=== PATIENT | female | born 1995 | race Caucasian/White ===

== ENCOUNTER 2019-12-09 11:31 | Outpatient (NON) | payer BC, SELFPAY ==
[2019-12-11 18:20] LABS: SARS-CoV-2 RNA PCR Negative
== END 2019-12-09 11:32 ==
PROVIDERS: PCP Family Medicine; Visit Provider Physician Assistant Medical
DX: Z20.828 Contact with and (suspected) exposure to other viral communicable diseases (principal); R05 Cough; R51.9 Headache, unspecified
CPT/HCPCS: 87635; C9803; U0003

== ENCOUNTER 2020-11-02 16:57 | Outpatient (CLI) | payer OTHER, SELFPAY ==
[2020-11-02 17:25] LABS: Basophils Absolute Auto 0.1 K/mm3 (0.0-0.1); Basophils Percent Auto 0.4 % (0.2-1.2); Eosinophils Absolute Auto 0.2 K/mm3 (0-0.3); Eosinophils Percent Auto 1.3 % (0-4.4); Hematocrit 36.2 % (37.0-47.0); Hemoglobin 12.9 g/dL (12.0-15.0); Immature Granulocyte Absolute 0.06 K/mm3 (0.00-0.031); Immature Granulocyte Percent A 0.5 % (0-0.5); Lymphocytes Absolute Auto 4.22 K/mm3 (0.9-3.2); Lymphocytes Percent Auto 32.9 % (18.3-44.2); Mean Corpuscular HGB Conc 35.6 g/dl (32-36); Mean Corpuscular Hemoglobin 30.4 pg (26-34); Mean Corpuscular Volume 85.2 fl (80-100); Mean Platelet Volume 9.2 fl (7.4-10.4); Monocytes Absolute Auto 0.8 K/mm3 (0.1-0.6); Neutrophils Absolute Auto 7.6 K/mm3 (1.3-6.7); Neutrophils Percent Auto 58.9 % (45.5-73.1); Platelet Count Result 291 k/mm3 (150-375); Red Blood Count 4.25 M/mm3 (4.2-5.4); Red Cell Distribution Width 12.7 % (11.5-14.5); White Blood Count 12.8 K/mm3 (4.5-10.0)
[2020-11-02 17:27] LABS: Add Urine Microscopic? NO; Appearance Urine Clear (Clear); Bilirubin Urine Negative (Negative); Blood Urine Negative (Negative); Color Urine Yellow (Yellow); Glucose Urine UA Negative (Negative); Ketones Urine Negative (Negative); Leukocyte Esterase Ur Negative LEU/UL (NEGATIVE); Nitrate Urine Negative (Negative); Protein Urine Negative (Negative); Specific Grav Ur 1.009 (1.001-1.035); Urobilinogen Urine Negative mg/dL (<2.0)
[2020-11-02 18:18] LABS: Thyroid Stimulating Hormone 0.631 uIU/mL (0.465-4.680); Vitamin D 25 Hydroxy 60.5 ng/mL
[2020-11-02 18:40] LABS: Hepatitis B Surface Antigen Negative (Negative)
[2020-11-02 18:55] LABS: Hepatitis C Virus Antibody Negative (Negative)
[2020-11-03 10:01] LABS: Rapid Plasma Reagin Non-Reactive (NonReactive)
[2020-11-05 10:51] LABS: Varicella IgG Antibody <135.00 Index (>=165.00)
[2020-11-08 12:43] LABS: Hematocrit 38.9 % (35.0-45.0); Hemoglobin 12.9 g/dL (11.7-15.5); MCH 29.7 pg (27.0-33.0); MCV 89.4 fL (80.0-100.0); RDW 13.5 % (11.0-15.0); Red Blood Cell Count 4.35 Mill/uL (3.80-5.10)
[2020-11-12 12:27] LABS: CF Result NEGATIVE (NEGATIVE)
== END 2020-11-02 16:58 | disposition home or self-care (01) ==
LOC: ANHLAB 17:00
PROVIDERS: PCP Family Medicine; Visit Provider Student in an Organized Health Care Education/Training Program
DX: Z32.00 Encounter for pregnancy test, result unknown (principal)
CPT/HCPCS: 36415; 81003; 81220; 82306; 83021; 84443; 85025; 86592; 86787; 86803; 86900; 86901; 87086; 87340

== ENCOUNTER 2020-11-26 15:16 | Outpatient (CLI) | payer OTHER, SELFPAY ==
--- NOTE | 2020-11-26 15:30 | ECG_ITS ---
Measurements Intervals [place] Rate: 59 P: 36 NM: 137 QRS: 59 QRSD: 108 T: 12 QT: 419 QTc: 416 Interpretive Statements SINUS BRADYCARDIA BORDERLINE ECG Electronically Signed On 11-26-2020 15:52:47 CDT by Tien Jamil D.O.
[2020-11-26 16:35] LABS: HIV 1/2 Ab P24 Ag Result Negative (Negative)
[2020-11-26 16:38] LABS: Rubella IgG Antibody 3.6 IU/ML
== END 2020-11-26 15:17 | disposition home or self-care (01) ==
LOC: ANHLAB 15:17
PROVIDERS: PCP Family Medicine; Visit Provider Student in an Organized Health Care Education/Training Program
DX: Z32.00 Encounter for pregnancy test, result unknown (principal); R00.2 Palpitations; Z3A.00 Weeks of gestation of pregnancy not specified; R00.1 Bradycardia, unspecified
CPT/HCPCS: 36415; 86703; 86762; 86850; 93005; G0432

== ENCOUNTER 2021-02-02 07:14 | Outpatient (CLI) | payer BC, SELFPAY ==
[2021-02-02 08:41] LABS: Basophils Absolute Auto 0.1 K/mm3 (0.0-0.1); Basophils Percent Auto 0.5 % (0.2-1.2); Eosinophils Absolute Auto 0.2 K/mm3 (0-0.3); Eosinophils Percent Auto 1.6 % (0-4.4); Hematocrit 34.1 % (37.0-47.0); Hemoglobin 11.4 g/dL (12.0-15.0); Immature Granulocyte Absolute 0.11 K/mm3 (0.00-0.031); Lymphocytes Absolute Auto 2.32 K/mm3 (0.9-3.2); Lymphocytes Percent Auto 21.2 % (18.3-44.2); Mean Corpuscular HGB Conc 33.4 g/dl (32-36); Mean Corpuscular Hemoglobin 30.4 pg (26-34); Mean Corpuscular Volume 90.9 fl (80-100); Monocytes Absolute Auto 0.7 K/mm3 (0.1-0.6); Monocytes Percent Auto 6.4 % (2.6-8.5); Neutrophils Absolute Auto 7.6 K/mm3 (1.3-6.7); Neutrophils Percent Auto 69.3 % (45.5-73.1); Platelet Count Result 282 k/mm3 (150-375); Red Blood Count 3.75 M/mm3 (4.2-5.4); Red Cell Distribution Width 12.8 % (11.5-14.5); White Blood Count 10.9 K/mm3 (4.5-10.0)
[2021-02-02 08:51] LABS: Glucose 1 Hour PP 50gm Dose 70 mg/dL
== END 2021-02-02 07:15 | disposition home or self-care (01) ==
PROVIDERS: PCP Family Medicine; Visit Provider Student in an Organized Health Care Education/Training Program
DX: Z34.02 Encounter for supervision of normal first pregnancy, second trimester (principal); Z3A.00 Weeks of gestation of pregnancy not specified
CPT/HCPCS: 36415; 82947; 85025

== ENCOUNTER 2021-03-26 16:39 | Outpatient (CLI) | payer BC, SELFPAY ==
[2021-03-26 17:26] LABS: Basophils Absolute Auto 0.1 K/mm3 (0.0-0.1); Basophils Percent Auto 0.5 % (0.2-1.2); Eosinophils Absolute Auto 0.2 K/mm3 (0-0.3); Eosinophils Percent Auto 1.6 % (0-4.4); Hematocrit 35.8 % (37.0-47.0); Hemoglobin 12.3 g/dL (12.0-15.0); Immature Granulocyte Absolute 0.17 K/mm3 (0.00-0.031); Immature Granulocyte Percent A 1.3 % (0-0.5); Lymphocytes Absolute Auto 2.93 K/mm3 (0.9-3.2); Lymphocytes Percent Auto 22.5 % (18.3-44.2); Mean Corpuscular HGB Conc 34.4 g/dl (32-36); Mean Corpuscular Hemoglobin 30.2 pg (26-34); Mean Platelet Volume 9.8 fl (7.4-10.4); Neutrophils Absolute Auto 8.6 K/mm3 (1.3-6.7); Neutrophils Percent Auto 66.1 % (45.5-73.1); Platelet Count Result 270 k/mm3 (150-375); Red Blood Count 4.07 M/mm3 (4.2-5.4); Red Cell Distribution Width 12.8 % (11.5-14.5)
[2021-03-26 18:25] LABS: HIV 1/2 Ab P24 Ag Result Negative (Negative)
[2021-03-29 07:15] LABS: Rapid Plasma Reagin Non-Reactive (NonReactive)
== END 2021-03-26 16:40 | disposition home or self-care (01) ==
PROVIDERS: PCP Family Medicine; Visit Provider Student in an Organized Health Care Education/Training Program
DX: Z34.03 Encounter for supervision of normal first pregnancy, third trimester (principal); Z3A.00 Weeks of gestation of pregnancy not specified
CPT/HCPCS: 36415; 85025; 86592; 86703; G0432

== ENCOUNTER 2021-05-11 16:00 | Inpatient (IN) | payer BC, SELFPAY ==
[2021-05-11 16:24] VITALS: BMI 32.1
--- NOTE | 2021-05-11 16:32 | LDADM ---
This patient, Vera Rossi, was admitted to Labor/Delivery/Recovery 106 on 05/11/21 at 16:00. Plans for labor, pain management and were discussed with patient. Patient/family oriented to hospital policies and general routines including ID bracelet, bed and alarms, visiting hours, pain management, procedures, bathroom and other care routines, personal items, smoking policy, room service/diet and guest tray routines, security routines, and visiting hours. Patient/Family are encouraged to report perceived risks to care and to ask questions if they do not understand what they are told or what they should do. See OBIX for further documentation.
--- NOTE | 2021-05-11 16:33 | PM.IMHP ---
H&P: HPI History of Present Illness Date/Time: 05/11/21 16:33 Patient is a 25yo LMP 08/08/20 currently 39w3d gestation with AJAY 05/15/21 who presented to L&D for scheduled elective induction of labor. Patient is dated by LMP which is c/w US on 09/29/20 at 7w gestation. Patient reports feeling well today. Reports occ possible contractions. Denies any vaginal bleeding or leakage of fluid. Reports good movement. Chief Complaint: Intrauterine at 39w3d gestation Elective induction of labor Review of Systems Review of Systems: All systems reviewed & are unremarkable except as noted in HPI and below Constitutional: Constitutional: Reports as per HPI, Reports no additional constitutional complaints, Denies chills, Denies fever(s), Denies headache(s) and Denies night sweats Eyes: Eyes: Reports as per HPI and Reports no additional eye complaints ENT: Reports system reviewed and no additional complaints, except as documented, Reports as per HPI, Reports Normal hearing present and Denies headache(s) Cardiovascular: Cardiovascular: Reports as per HPI, Reports no additional cardiovascular complaints, Denies chest pain and Denies dyspnea Respiratory: Respiratory: Reports as per HPI, Reports no additional respiratory complaints, Denies cough and Denies dyspnea Gastrointestinal: Gastrointestinal: Reports as per HPI, Reports no additional gastrointestinal complaints, Denies abdominal pain, Denies change in bowel habits, Denies change in stool character, Denies nausea and Denies vomiting Genitourinary: Genitourinary: Reports no additional female genitourinary complaints, Reports as per HPI, Denies abnormal vaginal bleeding, Denies genital lesions, Denies hot flashes, Denies dyspareunia, Denies pelvic pain, Denies sexual dysfunction, Denies urinary incontinence, Denies vaginal discharge, Denies vaginal dryness and Denies vaginal odor Musculoskeletal: Musculoskeletal: Reports no additional musculoskeletal complaints and Reports as per HPI Integumentary/Breasts: Skin/Breast: Reports system reviewed and no additional complaints, except as docu, Reports as per HPI, Denies breast pain and Denies nipple discharge Neurologic: Reports system reviewed and no additional complaints, except as documented, Reports as per HPI, Reports Normal hearing present and Denies headache(s) Psychiatric: Psychiatric: Reports no additional psychiatric complaints, Reports as per HPI, Denies anxiety and Denies depression Endocrine: Endocrine: Reports no additional endocrine complaints and Reports as per HPI Hematologic/Lymphatic: Hematologic/Lymphatic: Reports no additional hematologic/lymphatic complaints and Reports as per HPI Allergic/Immunologic: Allergic/Immunologic: Reports no additional allergic/immunologic complaints and Reports as per HPI PMFSH Past Medical History Medical History Depressive disorder Encounter for contraceptive surveillance Encounter for preconception consultation Exposure to STD Generalized anxiety disorder Irritable bowel syndrome with diarrhea Lab test negative for COVID-19 virus 10.30.20 Upper respiratory infection Surgical History Surgical History [place] teeth removed Family History Family History Grandparent Family history of osteoporosis Family history of mental disorder Family history of arthritis Family history of malignant neoplasm Family history of coronary artery disease Family history of pancreatic cancer Leukemia Father Hypertension Mother Family history of elevated blood lipids Social History Social History Smoking status: Never smoker Alcohol intake: former Substance use: never Spiritual care concerns: No Meds Home Medications and Allergies Home Medications Medication Instructio
--- NOTE | 2021-05-11 16:39 | WPDHPUPDATE1 ---
History and Physical Update Update Date/Time: 05/11/21 16:39 History and Physical has been reviewed, including an updated exam of the patient. There are NO changes in the patient's condition. Risks, benefits, and alternatives have been discussed and questions answered. Patient agrees to proceed with procedure.
[2021-05-11 16:53] VITALS: BP 104/73; PULSE 69
[2021-05-11 16:59] LABS: Basophils Absolute Auto 0.1 K/mm3 (0.0-0.1); Basophils Percent Auto 0.4 % (0.2-1.2); Eosinophils Absolute Auto 0.2 K/mm3 (0-0.3); Eosinophils Percent Auto 1.1 % (0-4.4); Hematocrit 39.9 % (37.0-47.0); Hemoglobin 13.2 g/dL (12.0-15.0); Immature Granulocyte Absolute 0.09 K/mm3 (0.00-0.031); Immature Granulocyte Percent A 0.7 % (0-0.5); Lymphocytes Absolute Auto 2.51 K/mm3 (0.9-3.2); Lymphocytes Percent Auto 18.3 % (18.3-44.2); Mean Corpuscular HGB Conc 33.1 g/dl (32-36); Mean Corpuscular Hemoglobin 28.9 pg (26-34); Mean Corpuscular Volume 87.3 fl (80-100); Mean Platelet Volume 10.7 fl (7.4-10.4); Monocytes Absolute Auto 0.8 K/mm3 (0.1-0.6); Neutrophils Absolute Auto 10.1 K/mm3 (1.3-6.7); Neutrophils Percent Auto 73.5 % (45.5-73.1); Platelet Count Result 253 k/mm3 (150-375); Red Blood Count 4.57 M/mm3 (4.2-5.4); White Blood Count 13.7 K/mm3 (4.5-10.0)
[2021-05-11] MEDS: DINOPROSTONE 10 MG VAG INSERT VAGINAL (17:02)
--- NOTE | 2021-05-11 18:25 | WPDANESEPP ---
Anes - Eval Pre Procedure Procedure: labor epidural Date/Time: 05/11/21 18:25 Surgeon: aba Pre Op Diagnosis: IOL Patient Data Age: 25 Gender: F Height: 1.55 m Weight: 77 kg Last Vital Signs Pulse 69 05/11/21 16:53 BP 104/73 05/11/21 16:53 Allergies Allergy/AdvReac Type Severity Reaction Status Date / Time No Known Allergies Allergy Verified 05/05/21 14:07 Home Medications Medication Instructions Recorded Confirmed Type docosahexaenoic acid 200 mg capsule 200 mg PO DAILY 09/22/20 05/11/21 History sertraline 50 mg tablet 50 mg PO DAILY #90 tablet 01/21/21 05/11/21 Rx Laboratory Tests 05/11/21 05/11/21 05/11/21 16:40 16:40 16:40 WBC 13.7 K/mm3 H K/mm3 (4.5-10.0) RBC 4.57 M/mm3 M/mm3 (4.2-5.4) Hgb 13.2 g/dL g/dL (12.0-15.0) Hct 39.9 % % (37.0-47.0) MCV 87.3 fl fl (80-100) MCH 28.9 pg pg (26-34) MCHC 33.1 g/dl g/dl (32-36) RDW 14.0 % % (11.5-14.5) Plt Count 253 k/mm3 k/mm3 (150-375) MPV 10.7 fl H fl (7.4-10.4) Immature Gran % (Auto) 0.7 % H % (0-0.5) Neut % (Auto) 73.5 % H % (45.5-73.1) Lymph % (Auto) 18.3 % % (18.3-44.2) [place] % (Auto) 6.0 % % (2.6-8.5) Eos % (Auto) 1.1 % % (0-4.4) Baso % (Auto) 0.4 % % (0.2-1.2) Lymph # (Auto) 2.51 K/mm3 K/mm3 (0.9-3.2) [place] # (Auto) 0.8 K/mm3 H K/mm3 (0.1-0.6) Eos # (Auto) 0.2 K/mm3 K/mm3 (0-0.3) Baso # (Auto) 0.1 K/mm3 K/mm3 (0.0-0.1) Abs Immat Gran (auto) 0.09 K/mm3 H K/mm3 (0.00-0.031) Absolute Neuts (auto) 10.1 K/mm3 H K/mm3 (1.3-6.7) Absolute Nucleated RBC 0.0 K/mm3 K/mm3 (0.0-0.012) Nucleated RBC % 0.0 % % (0.0-0.2) RPR Pending Blood Type Pending Antibody Screen Pending Patient hx anesthesia problems: none Family hx anesthesia problems: none Results Review: All pre-operative results and documents have been reviewed as part of the pre-operative evaluation. [facility] Past Medical History Medical History Depressive disorder Encounter for contraceptive surveillance Encounter for preconception consultation Exposure to STD Generalized anxiety disorder Irritable bowel syndrome with diarrhea Lab test negative for COVID-19 virus 10.30.20 Upper respiratory infection Surgical History Surgical History [place] teeth removed Family History Family History Grandparent Family history of osteoporosis Family history of mental disorder Family history of arthritis Family history of malignant neoplasm Family history of coronary artery disease Family history of pancreatic cancer Leukemia Father Hypertension Mother Family history of elevated blood lipids Social History Social History Smoking status: Never smoker Alcohol intake: former Substance use: never Spiritual care concerns: No Exam Day of Procedure 05/11/21 18:25
[2021-05-11 19:08] VITALS: BP 124/92; PULSE 88
[2021-05-11 20:01] VITALS: BP 117/83; PULSE 97
[2021-05-11 20:31] VITALS: BP 121/74; PULSE 74
[2021-05-11 23:27] VITALS: BP 111/74; PULSE 91
[2021-05-12] VITALS (79 sets, daily range): BP systolic 89–182; BP diastolic 29–156; PULSE 60–171; TEMP 36.6–38.8; O2SAT 90–100
--- NOTE | 2021-05-12 07:55 | P.PNOB_ITS ---
Pain Control Date/time seen: 05/12/21 07:55 Per RN, there was an approx. 5 min. decel at approx. 5:00 a.m. Tracing recovered. Patient doing well this AM. Reports feeling contractions, however, able to talk through them. EFM category 1. [place] shows contractions q1-2 mins. SVE 2/50/-2. AROM performed, clear fluid noted. Will observe and augment with pitocin as necessary. Pain management PRN. Continuous EFM and toco. May have epidural, if desired. Plan discussed with patient.
[2021-05-12] MEDS: OXYTOCIN 30 UNITS/NS 500 ML 30 UNITS/500 ML BAG 6 UNITS IV CONT (08:24)
[2021-05-12] MEDS: LACTATED RINGERS 1,000 ML 125 ML IV CONT (08:24)
[2021-05-12 12:23] LABS: Rapid Plasma Reagin Non-Reactive (NonReactive)
[2021-05-12] MEDS: ONDANSETRON INJ 4 MG/2 ML VIAL IV PUSH (16:11)
--- NOTE | 2021-05-12 16:47 | PM.OBPNLAB ---
Pain Control Date/time seen: 05/12/21 16:47 Patient doing well. Comfortable s/p epidural. /-2. Minimal caput noted. EFM 135/mod/+/occ variable. [place] shows ctx q 2-4 mins. Continuous EFM and toco. Continue pitocin.
[2021-05-13] VITALS (41 sets, daily range): BP systolic 100–126; BP diastolic 54–88; PULSE 71–158; RESP 16–20; TEMP 36.1–38.6; O2SAT 96–100
--- NOTE | 2021-05-13 00:10 | P.PNAN_ITS ---
Anes - Eval Pre Procedure Procedure: Operation Date: 05/13/21 23:55 Proposed Procedures p Section - Jenna James MD Date/Time: 05/13/21 00:10 Pre Op Diagnosis: IOL Patient Data Age: 25 Gender: F Height: 1.55 m Weight: 77 kg Last Vital Signs Temp 38.8 C H 05/12/21 21:41 Pulse 74 05/13/21 00:01 BP 107/54 L 05/13/21 00:01 Pulse Ox 100 05/12/21 10:31 Allergies Allergy/AdvReac Type Severity Reaction Status Date / Time No Known Allergies Allergy Verified 05/05/21 14:07 Home Medications Medication Instructions Recorded Confirmed Type docosahexaenoic acid 200 mg capsule 200 mg PO DAILY 09/22/20 05/11/21 History sertraline 50 mg tablet 50 mg PO DAILY #90 tablet 01/21/21 05/11/21 Rx Laboratory Tests 05/11/21 16:40 RPR Non-reactive (NonReactive) Patient hx anesthesia problems: none Family hx anesthesia problems: none Results Review: All pre-operative results and documents have been reviewed as part of the pre-operative evaluation. [facility] Past Medical History Medical History Depressive disorder Encounter for contraceptive surveillance Encounter for preconception consultation Exposure to STD Generalized anxiety disorder Irritable bowel syndrome with diarrhea Lab test negative for COVID-19 virus 10.30.20 Upper respiratory infection Surgical History Surgical History [place] teeth removed Family History Family History Grandparent Family history of osteoporosis Family history of mental disorder Family history of arthritis Family history of malignant neoplasm Family history of coronary artery disease Family history of pancreatic cancer Leukemia Father Hypertension Mother Family history of elevated blood lipids Social History Social History Smoking status: Never smoker Alcohol intake: former Substance use: never Spiritual care concerns: No Exam Day of Procedure 05/13/21 00:10
--- NOTE | 2021-05-13 00:13 | PM.OBPNLAB ---
Pain Control Date/time seen: 05/13/21 00:13 Patient seen at bedside. Patient progressed to fully dilated at 8:30 p.m. She began pushing shortly thereafter. Pushing continued, however, was temporarily suspended for 20-30 mins. to allow tracing to recover following decelerations. Little descent noted and amount of caput increased. head did not descend beyond -1 station despite 2.5 hours of active pushing. Discussion had with patient regarding situation and low likelihood of successful vaginal delivery. Recommendation made to proceed with section for arrest of descent. Risks and benefits of section discussed with patient. Patient implied an understanding and agrees with plan. All questions and concerns addressed. Anesthesia and OR team aware.
--- NOTE | 2021-05-13 01:44 | W.PM.PROC2 ---
Procedure Note - Detailed Date of Procedure 05/13/21 Pre-op Diagnosis Intrauterine at 39w5d gestation Arrest of descent Post-op Diagnosis Same Procedure Performed Primary low transverse section via Pfannenstiel Surgeon Jenna James MD Special Education Coordinator Edwin Ying Anesthesia Epidural Findings Live male infant in cephalic presentation, apgars 2,5, and 7, weighing 7 lbs. 9 oz., clear amniotic fluid, normal appearing uterus, ovaries, and fallopian tubes bilaterally Description of Procedure The patient was taken to the operating room, where she was transferred to the operating room table. The patient was placed in dorsal supine position with a leftward tilt. She was prepped and draped in the usual sterile fashion. Epidural anesthesia that had previously been placed was tested and found to be adequate. A Pfannenstiel skin incision was made with a scalpel and carried through to underlying layer of fascia with the Bovie. The fascia was incised in the midline and the incision was extended laterally with the use of forceps and Grimm scissors. The inferior aspect of the fascial incision was grasped with Jillian clamps, elevated, and the underlying rectus muscle were dissected off with Grimm scissors. Attention was then turned to the superior aspect of the fascial incision, which in a similar manner, was grasped with Jillian clamps, elevated, and the underlying rectus muscles were also dissected off with Grimm scissors. The rectus muscles were in the midline and the peritoneal cavity was entered bluntly. This incision was extended superiorly and inferiorly with good visualization of the bladder and care was taken to avoid blood vessels. A bladder blade was inserted. The vesicouterine peritoneum was identified and incised sharply with Metzenbaum scissors. This incision was extended laterally with Metzenbaum scissors and a bladder flap was created digitally. The bladder blade was replaced. A low-transverse uterine incision was made with a scalpel. This incision was extended laterally with bandage scissors. Amniotomy was performed. Clear amniotic fluid was noted. The infant's head was noted to be in asynclitic, almost complete transverse presentation with occiput towards maternal right side. Head was grasped and gently guided to the level of the uterine incision. The 's head was delivered easily and atraumatically without difficulty followed by the neck, shoulders, and rest of body with gentle fundal pressure. The infant's nose and mouth were suctioned with bulb suction. The was a bit floppy. The cord was clamped and cut and the infant was handed off to awaiting nursing staff. A segment of cord was collected for cord gases. Cord blood was also collected. The placenta was then delivered manually with gentle uterine massage. Uterus was exteriorized and cleared of all clots and debris. The uterine incision was reapproximated with 0 Vicryl in a running, locked fashion. A second imbricating layer using 0 Vicryl was performed. Excellent hemostasis was noted. On inspection, the uterus, ovaries, and fallopian tubes appeared to be normal bilaterally. The uterus was replaced into the abdominal cavity. The gutters were cleared of all clots and debris. The uterine incision was inspected again and noted to be hemostatic. Hemaderm was applied across the uterine incision. Interceed was also applied across the uterine incision and anterior surface of the uterus. The peritoneum was reapproximated with 2-0 Monocryl. The fascia was then closed with 0 Vicryl in a running fashion. The subcutaneous layer was irrigated with water. Pinpoint areas of bleeding were made hemostatic with Bovie. The subcutaneous layer was reapproximated with 2-0 plain and the skin was then closed with 4-0 Monocryl in a subcuticular fashion. The skin was cleansed and dried. Dermaflex skin adhesive was applied across the incision. A pressure dressing was also applied. The remainder the patient was cl
[2021-05-13] MEDS: MORPHINE SULFATE INJ (*CRX) 10 MG/ML AMP 3 MG IV PUSH ×2 (02:00→02:58)
--- NOTE | 2021-05-13 02:04 | PM.OBPRVD ---
OB - Delivery Note Procedure Delivery date: 05/13/21 Procedure: Procedures Operation Date: 05/13/21 23:55 <No data on this case meets the specified criteria> Events: Elective Induction of Labor Intrapartal Events: Arrest of Descent Induction method: Per Cervidil Protocol Delivery augmentation: Rupture of Membranes and Pitocin Delivery monitor: External FHT and External Uterine Route of delivery: Prior to decision for section, [facility] labor guidelines were considered and discussed with the patient and staff. Decision made to proceed with the section.: Yes Specimen: Yes (placenta and cord, cord blood, and cord gases) Quantitative Blood Loss (ml): 490 Anesthesia type: Epidural Disposition: PACU Complications: No immediate complications [place] Baby Date of : 05/13/21 Time of : 00:43 Weeks of gestation at delivery: 39 (39.5) Infant gender: Male Weight (pounds): 7 Weight (ounces): 9 presentation: transverse position: Right Occiput Transverse Placenta delivery description: Manual Removal Cord Vessel Description: 3 Vessels and Clamped/Cut score one minute: 2 score five minutes: 5 score ten minutes: 7 AMG Delivery Billing Delivery Delivery: Delivery Charge
[2021-05-13] MEDS: ceFAZolin 2 GM/D5W 50 ML 2 GM/50 ML BAG IVPB (03:57)
--- NOTE | 2021-05-13 04:09 | OBPPTRN ---
Patient transferred to post room #282 via stretcher. Support person present. Oriented to unit, room, information board, rooming in, admission packet and security measures. Patient verbalizes understanding.
[2021-05-13] MEDS: DEXTROSE 5%/0.45% SOD CHL 1,000 ML 125 ML IV CONT (04:32)
[2021-05-13] MEDS: KETOROLAC 30 MG/ML VIAL (*BKC) IV PUSH (04:33)
[2021-05-13] MEDS: DOCUSATE SODIUM 100 MG CAPSULE PO ×2 (08:55→17:50)
[2021-05-13] MEDS: MULTIVIT/MIN/PREN/FOL AC/IRON TABLET 1 TAB PO (08:56)
[2021-05-13] MEDS: HYDROcodone/acetaminophen (*CRX) 5-325 MG TABLET 1 TAB PO ×4 (08:56→20:13)
[2021-05-13] MEDS: WITCH HAZEL 40 PADS 1 PAD (10:30)
[2021-05-13] MEDS: DIBUCAINE 1% OINTMENT 30 GM TUBE 1 APPLIC (10:30)
[2021-05-13] MEDS: IBUPROFEN 600 MG TABLET PO ×2 (12:53→20:13)
--- NOTE | 2021-05-13 15:45 | PC.NURSE ---
1300 - Introductions were made, then consulted with patient to assess needs related to . Mother led the conversation with her experience feeding her infant so far. Mother works well with her with encouragement and education. Encouraged understanding of the benefits of skin to skin (unwrapping infant and placing vertically on her chest), responsive feeding and how to watch for early feeding signs, frequency of feeding on demand about every 8-12 times in 24 hours (every 2-3 hours), milk production, duration of feeding, signs of adequate intake/output and how to record on the feeding sheet. Mother demonstrates understanding and holds infant skin to skin. Reviewed positioning and ear, shoulder, hip alignment, supporting the breast, asymmetrical latch (off-center), and leading with the chin with a big open side gape. Infant was able to maintain latch without discomfort to mother earlier without deputy grand jury. Nipple care reviewed with optimal latch and good positioning. Reviewed good handwashing when or touching the breast/nipples to prevent infection. Resources used to facilitate learning were used with the visual handouts/ tool/mom and baby guide. Mother voiced understanding of responsive feedings, stimulating with skin to skin, hand expressed colostrum, touch, talking to to encourage if it has been 2 -3 hours since the start of the last , to call if does not latch or there is discomfort with . Reported to the primary RN.
[2021-05-13] MEDS: HYDROcodone/acetaminophen (*CRX) 10-325 MG TABLET 1 TAB PO (23:08)
[2021-05-14] MEDS: HYDROcodone/acetaminophen (*CRX) 10-325 MG TABLET 1 TAB PO ×2 (02:00→05:50)
[2021-05-14] MEDS: SIMETHICONE 80 MG TAB.CHEW PO ×7 (02:00→23:42)
[2021-05-14] MEDS: IBUPROFEN 600 MG TABLET PO ×4 (02:00→20:50)
[2021-05-14 02:15] LABS: Basophils Absolute Auto 0.1 K/mm3 (0.0-0.1); Basophils Percent Auto 0.4 % (0.2-1.2); Eosinophils Absolute Auto 0.2 K/mm3 (0-0.3); Eosinophils Percent Auto 0.8 % (0-4.4); Hematocrit 30.2 % (37.0-47.0); Hemoglobin 9.9 g/dL (12.0-15.0); Immature Granulocyte Absolute 0.12 K/mm3 (0.00-0.031); Immature Granulocyte Percent A 0.6 % (0-0.5); Lymphocytes Absolute Auto 1.97 K/mm3 (0.9-3.2); Lymphocytes Percent Auto 10.4 % (18.3-44.2); Mean Corpuscular HGB Conc 32.8 g/dl (32-36); Mean Corpuscular Hemoglobin 29.6 pg (26-34); Mean Corpuscular Volume 90.1 fl (80-100); Mean Platelet Volume 10.1 fl (7.4-10.4); Monocytes Percent Auto 5.5 % (2.6-8.5); Neutrophils Absolute Auto 15.5 K/mm3 (1.3-6.7); Neutrophils Percent Auto 82.3 % (45.5-73.1); Platelet Count Result 185 k/mm3 (150-375); Red Blood Count 3.35 M/mm3 (4.2-5.4); Red Cell Distribution Width 14.6 % (11.5-14.5); White Blood Count 18.9 K/mm3 (4.5-10.0)
[2021-05-14 08:00] VITALS: BP 118/76; PULSE 86; RESP 19; TEMP 36.2; O2SAT 99
[2021-05-14] MEDS: HYDROcodone/acetaminophen (*CRX) 5-325 MG TABLET 1 TAB PO ×5 (08:51→23:42)
[2021-05-14] MEDS: MULTIVIT/MIN/PREN/FOL AC/IRON TABLET 1 TAB PO (08:52)
[2021-05-14] MEDS: DOCUSATE SODIUM 100 MG CAPSULE PO ×2 (08:52→17:41)
[2021-05-14] MEDS: POLYSACCHARIDE IRON COMPLEX 150 MG CAPSULE PO ×2 (08:52→17:41)
--- NOTE | 2021-05-14 11:19 | PM.OBPNVD ---
OB - PN: Subj Subjective Date/time seen: 05/14/21 11:19 Patient doing well this AM. Pain well controlled with medication. Denies any headache, chest pain, SOB, N/V. Reports occ episodes of lightheadedness. Tolerating PO diet. Ambulating well. Voiding without difficulty. No flatus. OB - PN: Obj Data Labs CBC & Chem 7: 05/14/21 02:06 Labs: Laboratory Results - last 24 hr 05/14/21 02:06 WBC 18.9 H RBC 3.35 L Hgb 9.9 L D Hct 30.2 L MCV 90.1 MCH 29.6 MCHC 32.8 RDW 14.6 H Plt Count 185 MPV 10.1 Immature Gran % (Auto) 0.6 H Neut % (Auto) 82.3 H Lymph % (Auto) 10.4 L [place] % (Auto) 5.5 Eos % (Auto) 0.8 Baso % (Auto) 0.4 Lymph # (Auto) 1.97 [place] # (Auto) 1.0 H Eos # (Auto) 0.2 Baso # (Auto) 0.1 Abs Immat Gran (auto) 0.12 H Absolute Neuts (auto) 15.5 H Absolute Nucleated RBC 0.0 Nucleated RBC % 0.0 OB - PN A/P Assessment and Plan (1) delivery delivered: Code(s): O82 - Encounter for delivery without indication Status: Acute Assessment and Plan: POD#1 doing well continue routine postoperative care encourage ambulation and use of IS Time Spent With Patient Time: Total time spent is greater than 50% in coordination of care (as documented) at patient's floor/unit and/or counseling patient: Exam Const: General: cooperative, healthy appearing, comfortable and no acute distress GI: GI Palp: Yes Soft to palpation and Yes Tenderness to palpation present (GI) (appropriately tender) Other: softly distended; fundus firm below umbilicus; inc c/d/i Extrem: Right lower extremity: no edema Left lower extremity: no edema Other: no calf tenderness
--- NOTE | 2021-05-14 15:00 | WPDANLDPN2 ---
Anes-Prog Note L&D Date/Time: 05/14/21 15:00 Comfortable throughout: labor and section Neuraxial method: epidural Epidural/Spinal procedure site: clean & non-tender Neuro status: Neuro function grossly intact. Cardiovascular status: normal Respiratory status: normal Airway patency: baseline Mental status: baseline Post-Op hydration status: normal Vital Signs: Last Vital Signs Temp 97.2 F L 05/14/21 08:00 Pulse 86 05/14/21 08:00 Resp 19 05/14/21 08:00 BP 118/76 05/14/21 08:00 Pulse Ox 99 05/14/21 08:00 Pain score (VAS): 0 I/O: Intake & Output 05/13/21 05/14/21 05/14/21 23:59 07:59 15:59 Intake Total 1000 Balance 1000 Post-procedural complaints: pruritis mild, no treatment Patient feedback: Patient satisfied with anesthetic care.
--- NOTE | 2021-05-14 15:01 | WPDANLDNPN2 ---
Anes-Prog Note L&D-Neuraxial Date/Time: 05/14/21 15:01 Neuraxial medications: epidural PF morphine Opiod-related complaints: pruritis mild, no treatment Patient feedback: Patient satisfied with post-operative pain management.
--- NOTE | 2021-05-14 15:08 | PC.NURSE ---
[id number] Introductions were made, then consulted with patient to assess needs related to . Mother led the conversation with her experience feeding her so far. Encouraged understanding of the benefits of skin to skin (unwrapping infant and placing vertically on her chest), responsive feeding and how to watch for early feeding signs, frequency of feeding on demand about every 8-12 times in 24 hours (every 2-3 hours), milk production, duration of feeding, signs of adequate intake/output and how to record on the feeding sheet. Reviewed positioning and ear, shoulder, hip alignment, supporting the breast, asymmetrical latch (off-center), and leading with the chin with a big open side gape. Mother states that was able to maintain latch without discomfort with the last feeding. Mother has plans to breastfeed her infant at 1300. Reviewed feeding cues and on demand along with feeding within 3 hours of the start of the last feeding. Nipple care reviewed with optimal latch and good positioning. Reviewed good handwashing when or touching the breast/nipples to prevent infection. Resources used to facilitate learning were used with the visual handouts/mom and baby guide. Encouraged mother to call out for a latch/position assessment with the next breastfeed. Mother voiced understanding of responsive feedings, stimulating with skin to skin, hand expressed colostrum, touch, talking to infant to encourage if it has been 2 -3 hours since the start of the last , to call if infant does not latch or there is discomfort with . Reported to the primary RN.
--- NOTE | 2021-05-14 16:19 | PC.NURSE ---
[id number] Consulted with patient to assess needs related to . Mother led conversation with her experience with feeding baby so far. Mother works well with her with encouragement. Mother has some bruising to the nipples from previous poor latching but is aware of the difference between an optimal latch and ineffective latch. Reviewed working with infant, breast, nipples and how to protect the nipples with an optimal deep latch, good positioning, and good hand washing. Encouraged understanding the benefits of skin to skin, responding to feeding cues, frequencies of feeding 8-12 times in 24 hours (approximately 2-3 hours), duration of feedings, milk production, intake/output feeding sheet and signs of adequate intake encouraging swallowing at the breast. Reviewed positioning and alignment, supporting breast, off-centered (asymmetrical latch) and leading with the chin with big open wide gape. latched optimally to the left and right breast in cross cradle position. Education given to mother of how to visualize suck/swallow ratios and drinking at the breast. Infant was able to maintain latch without discomfort to mother. Nipple care reviewed with optimal latch and good positioning, comfort, healing with warm, wet washcloth to rinse breast, then leave open to air-dry, colostrum may be left on nipples to dry but have clean hands when touching the nipple/breast as needed. Resources used to facilitate learning were used from the visual handout/mom and baby guide. Mother voiced understanding of the education shared, calling for assistance if the infant does not latch or if there is discomfort with . Reported to the primary RN.
[2021-05-14 19:12] VITALS: BP 112/77; PULSE 90; RESP 16; TEMP 36.9
[2021-05-15] MEDS: IBUPROFEN 600 MG TABLET PO ×3 (02:43→14:12)
[2021-05-15] MEDS: HYDROcodone/acetaminophen (*CRX) 5-325 MG TABLET 1 TAB PO ×4 (02:43→14:11)
[2021-05-15] MEDS: SIMETHICONE 80 MG TAB.CHEW PO ×3 (02:43→09:17)
[2021-05-15 05:21] LABS: Mean Corpuscular HGB Conc 32.3 g/dl (32-36); Mean Corpuscular Hemoglobin 29.3 pg (26-34); Mean Corpuscular Volume 90.9 fl (80-100); Mean Platelet Volume 10.2 fl (7.4-10.4); Platelet Count Result 263 k/mm3 (150-375); Red Blood Count 3.41 M/mm3 (4.2-5.4); Red Cell Distribution Width 14.5 % (11.5-14.5); White Blood Count 13.8 K/mm3 (4.5-10.0)
[2021-05-15 08:00] VITALS: BP 129/81; PULSE 96; RESP 18; TEMP 36.2
--- NOTE | 2021-05-15 09:00 | PC.NURSE ---
Patient viewed the discharge video Mother & Baby Care, The First Two Weeks . Patient was given the opportunity and encouraged to ask questions. Patient verbalized understanding of information shared and has been given the mother/baby guide for home reference.
[2021-05-15] MEDS: DOCUSATE SODIUM 100 MG CAPSULE PO (09:17)
[2021-05-15] MEDS: MULTIVIT/MIN/PREN/FOL AC/IRON TABLET 1 TAB PO (09:17)
[2021-05-15] MEDS: POLYSACCHARIDE IRON COMPLEX 150 MG CAPSULE PO (09:18)
--- NOTE | 2021-05-15 09:20 | PM.OBPNVD ---
OB - PN: Subj Subjective Date/time seen: 05/15/21 09:20 Patient doing well. Pain well controlled with medication. Denies any headache, chest pain, SOB, N/V. Tolerating PO diet. Voiding without difficulty. Ambulating well. +flatus. Minimal lochia. OB - PN: Obj Data Labs CBC & Chem 7: 05/15/21 04:03 Labs: Laboratory Results - last 24 hr 05/15/21 04:03 WBC 13.8 H RBC 3.41 L Hgb 10.0 L Hct 31.0 L MCV 90.9 MCH 29.3 MCHC 32.3 RDW 14.5 Plt Count 263 MPV 10.2 OB - PN A/P Assessment and Plan (1) delivery delivered: Code(s): O82 - Encounter for delivery without indication Status: Acute Assessment and Plan: POD#2 doing well discharge home in stable condition emergency precautions reviewed f/u in office in 2 weeks for postoperative visit Time Spent With Patient Time: Total time spent is greater than 50% in coordination of care (as documented) at patient's floor/unit and/or counseling patient: Exam Const: General: cooperative, healthy appearing, comfortable and no acute distress GI: Inspection: non-distended GI Palp: Yes Soft to palpation and Yes Tenderness to palpation present (GI) (appropriately tender) Other: inc c/d/i; fundus firm below umbilicus Extrem: Right lower extremity: no edema Left lower extremity: no edema Other: no calf tenderness
--- NOTE | 2021-05-15 09:24 | PM.OBDSVD ---
DS: Admitting Diagnosis Discharge Date 05/15/21 Admitting Diagnosis Elective induction of labor OB - DS: Summary OB Procedures : None OB Procedures Intrapartum: OB Procedures: : None Peripartum Data Procedures: Procedures Operation Date: 05/13/21 23:55 Actual Procedure Side Surgeon p Section Not Applicable Jenna James MD Time Spent with Patient Time attestation: Total time spent providing and/or coordinating discharge services: DS: Data Data Completed and Pending Pending studies at discharge: Pending at discharge 05/13/21 00:45 Surgical [PTH] Routine Labs on day of discharge: Labs from last 24 hours 05/15/21 04:03 WBC 13.8 H RBC 3.41 L Hgb 10.0 L Hct 31.0 L MCV 90.9 MCH 29.3 MCHC 32.3 RDW 14.5 Plt Count 263 MPV 10.2 Discharge Plan Discharge Attending physician on discharge: Jenna James Discharging Clinician: Jenna James Anticipated Discharge Date/Time: 05/15/21 09:24 Patient Disposition: Home, Self-Care Activity: may drive after 2 weeks, as tolerated and pelvic rest Diet: regular Discharge Instructions: Call office ([phone]) to schedule the following appointments: 1. Postoperative/wound check in 2 weeks. 2. visit in 4-6 weeks. You may take Ibuprofen 600mg every 6 hours as needed for pain. I have sent a prescription for a stronger pain medication, [place], to your pharmacy. You may take this as prescribed for breakthrough pain (pain that is not controlled with Ibuprofen). No driving for at least two weeks. You also may not drive while taking narcotics. Pain medication may make you constipated. It may be helpful to take an [id number] stool softener, such as Colace and/or Senokot, along with the pain medication to help lessen constipation. Call office or go to ED for pain not controlled with medication, headache, chest pain, shortness of breath, fever, chills, persistent nausea or vomiting, severe abdominal pain, heavy vaginal bleeding >2 pads/hour, foul vaginal discharge or odor, any redness near incision, severe pain, pus or drainage from incision site, or problems with your breasts. Patient Instructions: Antibiotic Form Stand Alone Forms: General Discharge Information Follow-up/Referrals: Jenna James MD [Physician] - Discharge Medications: New hydrocodone-acetaminophen 5-325 mg Tablet 1 - 2 tablet PO Q4-6H PRN (Reason: Moderate Pain (4-6)) Qty: 30 RF: 0 Continued DHA 200 mg capsule 200 mg PO DAILY RF: 0 sertraline [Zoloft] 50 mg tablet 50 mg PO DAILY Qty: 90 RF: 1 Date of admission: 05/11/21 16:00 Primary Care Provider: Chanda Gonzalez Admitting Provider: Jenna James Attending physician on admission: Jenna James Condition: Stable
--- NOTE | 2021-05-15 10:25 | PC.NURSE ---
Self care and infant care discharge instructions given including follow up visit date and time. Pt. verbalized understanding. No questions or concerns voiced. at side.
[2021-05-15] MEDS: MEASLES,MUMPS,RUBELLA VACCINE 0.5 ML VIAL SUB-Q (14:13)
[2021-05-17 11:46] VITALS: BP 112/77; PULSE 92; RESP 18; TEMP 36.9; O2SAT 98
== END 2021-05-15 15:25 | disposition home or self-care (01) | DRG 788 ==
LOC: ANHLDR 16:08 → ANHOB2 05-13 04:16
PROVIDERS: Admitting Provider Student in an Organized Health Care Education/Training Program; PCP Family Medicine; Visit Provider Student in an Organized Health Care Education/Training Program
PROC: 10D00Z1 Extraction of Products of Conception, Low, Open Approach (ICD-10-PCS; CPT 59514; principal; 2021-05-13 23:55)
DX: O99.62 Diseases of the digestive system complicating childbirth (principal); Z37.0 Single live birth; Z3A.39 39 weeks gestation of pregnancy; K58.9 Irritable bowel syndrome, unspecified; O36.8330 Maternal care for abnormalities of the fetal heart rate or rhythm, third trimester, not applicable or unspecified; O32 Maternal care for malpresentation of fetus; O99.73 Diseases of the skin and subcutaneous tissue complicating the puerperium; L29.9 Pruritus, unspecified; O99.344 Other mental disorders complicating childbirth; F41.1 Generalized anxiety disorder; F32.A Depression, unspecified
CPT/HCPCS: 36415; 85025; 85027; 86592; 86850; 86900; 86901; 88307; 90710; A9270; J0131; J0690; J1885; J2270; J2274; J2405; J2590; J2795; J7120